=== PATIENT | female | born 1970 | race Caucasian/White ===

== ENCOUNTER 2020-06-06 12:59 | Emergency (ER) | payer OTHER, SELFPAY ==
--- NOTE | ~2020-06-06 | US_ITS ---
EXAMINATION: US pelvic complete w TV EXAM DATE: 06/06/2020 16:15 INDICATION: Vaginal bleeding, spotting after menstrual cycle Stopped. TECHNIQUE: Pelvic transabdominal and transvaginal sonogram was performed. There are multiple graysca le and Doppler images available for interpretation. Comparison is made to prior examination from 09/06. FINDINGS: Uterus measures 8.5 x 5.4 x 5.6 cm, is anteverted with cystic region at the cervix probabl y nabothian cyst, another region which may be a small fibroid measuring 1 cm. Endometrial stripe alireza ures 5 mm, within normal limits. There is no free pelvic fluid. Right adnexa: The ovary measures 2.4 x 1.0 x 2.5 cm and is morphologically normal. Ovarian vascular f low confirmed. Left adnexa: The ovary measures 1.6 x 0.7 x 1.8 cm and is morphologically normal. Ovarian vascular fl ow confirmed. IMPRESSION: 1. Unremarkable pelvic ultrasound exam. Reviewed, dictated and finalized at location A.
[2020-06-06 13:29] VITALS: BP 179/94; PULSE 98; RESP 20; TEMP 37.1; O2SAT 100
[2020-06-06 13:34] LABS: Basophils Absolute Auto 0.1 K/mm3 (0.0-0.1); Basophils Percent Auto 0.7 % (0.2-1.2); Eosinophils Absolute Auto 0.2 K/mm3 (0-0.3); Eosinophils Percent Auto 1.9 % (0-4.4); Hematocrit 39.8 % (37.0-47.0); Hemoglobin 13.3 g/dL (12.0-15.0); Immature Granulocyte Absolute 0.08 K/mm3 (0.00-0.031); Immature Granulocyte Percent A 0.9 % (0-0.5); Lymphocytes Absolute Auto 3.93 K/mm3 (0.9-3.2); Lymphocytes Percent Auto 41.8 % (18.3-44.2); Mean Corpuscular HGB Conc 33.4 g/dl (32-36); Mean Corpuscular Hemoglobin 30.2 pg (26-34); Mean Corpuscular Volume 90.5 fl (80-100); Mean Platelet Volume 10.3 fl (7.4-10.4); Monocytes Absolute Auto 0.9 K/mm3 (0.1-0.6); Neutrophils Absolute Auto 4.3 K/mm3 (1.3-6.7); Neutrophils Percent Auto 45.7 % (45.5-73.1); Platelet Count Result 265 k/mm3 (150-375); Red Cell Distribution Width 13.7 % (11.5-14.5); White Blood Count 9.4 K/mm3 (4.5-10.0)
[2020-06-06 13:48] LABS: Alanine Aminotransferase 50 U/L (4-35); Albumin Level 4.3 g/dL (3.5-5.1); Alkaline Phosphatase 66 U/L (38-126); Anion Gap 11.6 mmol/L (7-16); Aspartate Amino Transferase 45 U/L (14-36); Bilirubin,Total 0.4 mg/dL (0.2-1.3); Blood Urea Nitrogen 15 mg/dL (7-17); Calcium 9.1 mg/dL (8.4-10.2); Carbon Dioxide 23 mmol/L (22-30); Chloride 107 mmol/L (98-107); Estimated CRCL calculation 98 ml/min; Estimated Glomerular Filt Rate > 60; Glucose 109 mg/dL (65-105); Lipase 123 U/L (23-300); Potassium 3.6 mmol/L (3.4-5.0); Sodium 138 mmol/L (137-145)
[2020-06-06 13:51] LABS: Add Urine Microscopic? YES; Appearance Urine Clear (Clear); Bacteria Urine Trace /hpf; Bilirubin Urine Negative (Negative); Blood Urine 3+ (Negative); Color Urine Yellow (Yellow); Glucose Urine UA Negative (Negative); Ketones Urine Negative (Negative); Leukocyte Esterase Ur Negative LEU/UL (Negative); Mucus Urine Rare /lpf; Nitrate Urine Negative (Negative); Protein Urine 1+ mg/dL (Negative); RBC Urine >75 /hpf (0-2); Specific Grav Ur 1.029 (1.001-1.035); Squamous Epithelial Cell Urine Moderate /hpf (Few); Urobilinogen Urine Negative mg/dL (<2.0); WBC Urine 0-3 /hpf
--- NOTE | 2020-06-06 15:25 | ED.FEMALEGU ---
HPI - Female Genitourinary General Chief complaint: Vaginal Bleeding Stated complaint: abnormal period Time Seen by Provider: 06/06/20 14:20 Source: patient Mode of arrival: ambulatory Limitations: no limitations History of Present Illness HPI Narrative: This patient is a 49 year old female who presents for evaluation of abnormal vaginal bleeding. PAtient states she started her menstrual cycle early and she feels off. PAtient reports she had a cycle that started May 02 and it lasted 6 days. She then started another menstrual cycle May 23 and it lasted 8 days. She thought she was done with her cycle but she developed vaginal spotting today. She reports intermittent groin pain. She denies nausea, vomiting, fever or chills. She denies hematuria. She has history of endometriosis. Relieving factors: menstrual period Related Data Allergies Allergy/AdvReac Type Severity Reaction Status Date / Time levofloxacin Allergy Unknown MUSCLE Verified 04/20/19 00:05 WEAKNESS Sulfa (Sulfonamide Allergy Unknown VOMIT Verified 04/20/19 00:05 Antibiotics) AMOXICILLIN TRIHYDRATE Allergy Unknown RASH Uncoded 04/20/19 00:05 HYDROCODONE BIT Allergy Unknown RASH Uncoded 04/20/19 00:05 OXYCODONE HCL Allergy Unknown Uncoded 04/20/19 00:05 POTASSIUM CLAVULANATE Allergy Unknown RASH Uncoded 04/20/19 00:05 Review of Systems Review of Systems: All systems reviewed & are unremarkable except as noted in HPI and below Constitutional: Constitutional: Denies chills and Denies fatigue Genitourinary: Genitourinary: Reports abnormal vaginal bleeding PMFSH Past Medical History Medical History (Updated 06/06/20 @ 17:55 by Emma Lee MD) Endometriosis Migraine headache Surgical History Surgical History (Updated 06/06/20 @ 15:29 by Emma Lee MD) History of laparoscopy Social History Social History Smoking status: Never smoker Alcohol intake: never Exam Narrative: Exam Narrative: GENERAL: Well-appearing, well-nourished, and in no acute distress. HEAD: Normocephalic, atraumatic EYES: PERRLA and EOMI, conjunctiva clear without discharge THROAT:Mucous membranes moist, Oropharynx normal without erythema, exudate, peritonsillar swelling or fluctuance NECK: Supple, without lymphadenopathy or mass RESPIRATORY: No respiratory distress, Airway patent, Respirations non-labored, Clear to auscultation without rales, rhonchi or wheeze HEART: Regular rate and rhythm. No murmur heard. Normal peripheral pulses. ABDOMEN: Soft, nontender, nondistended, normal active bowel sounds. No masses. No rebound or guarding, No organomegaly. EXTREMITIES: No edema, normal strength with full range of motion. SKIN: Warm, dry, normal color without rash NEURO: Alert and oriented x3. CN 2-12 grossly intact. No focal deficits. PSYCH: Normal mood and affect. : Speculum Exam - Vagina: vaginal bleeding (small amount of dark vaginal bleeding, no clots) Speculum Exam - Cervix: Cervical os closed Bimanual Exam- Adnexa, other: no masses Course Reevaluation(s) Reevaluation #1: I Discussed with patient that labs are unremarkable. She has blood in her urine but she is having vaginal bleeding. I also discussed ultrasound. She will follow up with [facility] dental lab technician. Date: 06/06/20 Time: 17:53 Vital Signs Vital signs: Vital Signs Temperature 98.7 F 06/06/20 13:29 Pulse Rate 98 06/06/20 13:29 Respiratory Rate 20 06/06/20 13:29 Blood Pressure 179/94 H 06/06/20 13:29 Pulse Oximetry 100 06/06/20 13:29 Temperature 98.7 F 06/06/20 13:29 Pulse Rate 73 06/06/20 17:18 Respiratory Rate 18 06/06/20 17:18 Blood Pressure 147/95 H 06/06/20 17:18 Pulse Oximetry 99 06/06/20 17:18 MDM - Female Genitourinary Lab Data Attestation: I reviewed the patient's lab results. Result diagrams: 06/06/20 13:29 06/06/20 13:29 Labs: Lab Results 06/06/20 06/06/20 06/06/20 Range/Units 13:29
[2020-06-06 17:18] VITALS: BP 147/95; PULSE 73; RESP 18; O2SAT 99
== END 2020-06-06 18:18 | disposition home or self-care (01) ==
PROVIDERS: Emergency Provider General Practice
DX: N92.1 Excessive and frequent menstruation with irregular cycle (principal); N80.9 Endometriosis, unspecified
CPT/HCPCS: 36415; 76830; 76856; 80053; 81001; 81025; 83690; 85025; 99284

== ENCOUNTER 2020-09-04 15:28 | Outpatient (CLI) | payer OTHER, SELFPAY ==
--- NOTE | ~2020-09-04 | MM_ITS ---
EXAMINATION: MM screening [facility]hel HISTORY: Screening TECHNIQUE: Craniocaudal and mediolateral oblique 3-D tomosynthesis images were obtained and synthetic 2-D images were generated. CAD analysis was submitted and interpreted. COMPARISON: Comparison to multiple prior studies sequentially, with oldest reviewed study dated 09/03. BREAST PARENCHYMAL COMPOSITION: The breasts are heterogeneously dense, which may obscure small masses . FINDINGS: There are clusters of calcifications in the upper outer quadrant of the right breast, nonsp ecific. The left breast is stable without evidence for malignancy. IMPRESSION: 1. New cluster of indeterminate right breast calcifications, upper outer quadrant. 2. Magnification views are recommended. BI-RADS Category 0: Incomplete: Needs additional imaging evaluation. Reviewed, dictated and finalized at location A. R [employer] IMPRESSION: 1. New cluster of indeterminate right breast calcifications, upper outer quadra nt. 2. Magnification views are recommended. BI-RADS Category 0: Incomplete: Needs additional imaging evaluation.
== END 2020-09-04 15:29 | disposition home or self-care (01) ==
LOC: ANHIMG 15:34
PROVIDERS: PCP Nurse Practitioner Family; Visit Provider Nurse Practitioner Family
DX: Z12.31 Encounter for screening mammogram for malignant neoplasm of breast (principal); R92.8 Other abnormal and inconclusive findings on diagnostic imaging of breast
CPT/HCPCS: 77063; 77067

== ENCOUNTER 2020-10-06 12:15 | Outpatient (CLI) | payer OTHER, SELFPAY ==
--- NOTE | ~2020-10-06 | MMUS_ITS ---
EXAMINATION: MM diagnostic mammo unilat RT, US breast RT limited HISTORY: New cluster of indeterminate right breast calcifications reported in upper outer quadrant on 09/04/2020 bilateral digital screening mammogram examination TECHNIQUE: Additional 3-D ML tomosynthesis images of right breast were performed and synthetic 2-D im ages were generated. Magnification views of right breast in ML, MLO and CC projections. CAD analysis was submitted and interpreted. High resolution upper outer quadrant right breast ultrasound was perfo rmed. COMPARISON: 09/04/2020 bilateral digital screening mammogram FINDINGS: MAMMOGRAPHIC FINDINGS: There are several areas of grouped microcalcifications in the posterior upper outer right breast; one of these clusters has multiple granular indeterminate microcalcifications, for which stereotactic bi opsy is recommended. ULTRASOUND: Upper outer quadrant right breast ultrasound examination revealed 2 small cysts, one at 10:00 16 cm f rom the nipple measuring up to 3.3 mm, the other at 10:00 13 cm from the nipple, measuring up to 2.7 x 5.7 mm. There is dense tissue but no suspicious solid lesion or suspicious reproducible shadowing is noted ot herwise. IMPRESSION: 1. Indeterminate cluster of numerous granular microcalcifications in the upper outer right breast 2. Stereotactic biopsy is recommended. BI-RADS category 4, suspicious findings. Dr. Braun left a telephone voicemail message with the report and recommendation for stereotactic biops y of the upper outer quadrant of the right breast recommendation at [phone] on 10/06/2020 at 1345 hours. Reviewed, dictated and finalized at location A. RAL SERVICE TECHNICIAN IMPRESSION: 1. Indeterminate cluster of numerous granular microcalcifications in the upper outer right breast 2. Stereotactic biopsy is recommended. BI-RADS category 4, suspicious findings. Dr. Braun left a telephone voicemail message with the report and recommendation for stereotactic biopsy of the upper outer quadrant of the right breast recomme ndation at [phone] on 10/06/2020 at 1345 hours. IMPRESSION: 1. Indeterminate cluster of numerous granular microcalcifications in the upper outer right breast 2. Stereotactic biopsy is recommended. BI-RADS category 4, suspicious findings. Dr. Braun left a telephone voicemail message with the report and recommendation for stereotactic biopsy of the upper outer quadrant of the right breast recomme ndation at [phone] on 10/06/2020 at 1345 hours.
== END 2020-10-06 12:16 | disposition home or self-care (01) ==
PROVIDERS: PCP Nurse Practitioner Family; Visit Provider Nurse Practitioner Family
DX: R92.1 Mammographic calcification found on diagnostic imaging of breast (principal); N60.01 Solitary cyst of right breast
CPT/HCPCS: 76642; 77065

== ENCOUNTER 2020-10-20 10:29 | Outpatient (CLI) | payer OTHER, SELFPAY ==
--- NOTE | ~2020-10-20 | MM_ITS ---
MM post biopsy diagnostic RT, MM stereotactic specimen RT, MM stereotactic bx RT EXAMINATION: MM post biopsy diagnostic RT, MM stereotactic specimen RT, MM stereotactic bx RT DATE: Naldo Buenrostro M.D. INDICATION: Abnormal mammogram with calcifications in the right breast. Stereotactic core biopsy is requested evaluate for malignancy.] TECHNIQUE AND FINDINGS: The risks and potential benefits of the procedure were discussed with the patient and written informe d consent was obtained. The patient was placed in the prone position clustered at the table with the right breast in mediolateral compression, and the area of interest was localized and targeted utiliz ing digital imaging with stereotaxis. After sterile preparation of the skin, 1% lidocaine was utilized for local anesthesia at the skin pun cture site and 1% lidocaine with epinephrine was utilized for deeper local anesthesia/is about the bi opsy site. A 9G Merlin vacuum assisted biopsy needle was advanced to the level of the calcification o f interest from a lateral approach utilizing stereotactic guidance and a total of 6 tissue core biops ies were obtained. A specimen radiograph demonstrates that the calcifications of interest are included within the tissue cores. A tissue marker clip was then placed at the biopsy site. The needle was removed and hemosta sis was achieved. The patient tolerated the procedure well and there is no evidence of significant i mmediate complication. The patient was given verbal as well as written postprocedural instructions p rior to discharge from the department. Tissue cores were submitted to surgical pathology for histolo gic analysis. A 2-view right unilateral digital mammogram was obtained post procedure and this demonstrates that th e tissue marker clip is in expected position.] IMPRESSION: 1. Successful stereotactic biopsy of calcifications in the upper outer quadrant of the right breast, followed by tissue marker clip placement. Please refer to pathology report for histologic analysis. Reviewed, dictated and finalized at location A. RACKER IMPRESSION: 1. Successful stereotactic biopsy of calcifications in the upper outer quadran t of the right breast, followed by tissue marker clip placement. Please refer to pathology report for histologic analysis. IMPRESSION: 1. Successful stereotactic biopsy of calcifications in the upper outer quadran t of the right breast, followed by tissue marker clip placement. Please refer to pathology report for histologic analysis.
== END 2020-10-20 10:30 | disposition home or self-care (01) ==
PROVIDERS: PCP Physician Assistant; Visit Provider Nurse Practitioner Family
DX: R92.8 Other abnormal and inconclusive findings on diagnostic imaging of breast (principal); R92.1 Mammographic calcification found on diagnostic imaging of breast; N60.32 Fibrosclerosis of left breast; N60.31 Fibrosclerosis of right breast
CPT/HCPCS: 19081; 77065; 88305; A4648

== ENCOUNTER 2022-01-10 15:07 | Outpatient (CLI) | payer OTHER, SELFPAY ==
--- NOTE | ~2022-01-10 | MM_ITS ---
EXAMINATION: MM screening [facility] w [facility]hel HISTORY: Screening TECHNIQUE: Craniocaudal and mediolateral oblique 3-D tomosynthesis images were obtained and synthetic 2-D images were generated. CAD analysis was submitted and interpreted. COMPARISON: Comparison to multiple prior studies sequentially, with oldest reviewed study dated 02/2018. BREAST PARENCHYMAL COMPOSITION: There are scattered areas of fibroglandular density. FINDINGS: There is no evidence of suspicious mass, calcification, or architectural distortion to sugg est malignancy in either breast. There has been no suspicious interval change. IMPRESSION: 1. No mammographic evidence of malignancy. 2. Recommend routine screening mammography in one year. BI-RADS Category 1: Negative Reviewed, dictated and finalized at location A. E MAN
== END 2022-01-10 15:08 | disposition home or self-care (01) ==
LOC: ANHIMG 15:09
PROVIDERS: PCP Physician Assistant; Visit Provider Obstetrics & Gynecology
DX: Z12.31 Encounter for screening mammogram for malignant neoplasm of breast (principal)
CPT/HCPCS: 77063; 77067

== ENCOUNTER 2022-03-25 08:11 | Outpatient (CLI) | payer OTHER, SELFPAY ==
--- NOTE | ~2022-03-25 | US_ITS ---
EXAMINATION: US soft tissue head and neck DATE: 03/25/2022 11:04 INDICATION: Left neck lump. TECHNIQUE: Multiple grayscale and Doppler ultrasound images of the neck were obtained. COMPARISON: CT cervical spine 09/18/2018 FINDINGS: There is a normal superficial lymph node in the patient's area of concern in left neck. IMPRESSION: 1. Normal superficial lymph node in the patient's area of concern in left neck. Reviewed, dictated and finalized at location A.
--- NOTE | ~2022-03-25 | US_ITS ---
EXAMINATION: US soft tissue upper back DATE: 03/25/2022 11:03 INDICATION: Right back mass. TECHNIQUE: Multiple grayscale and Doppler ultrasound images of the right posterior thorax were obtain ed. COMPARISON: Cervical spine CT 09/18/2018, CT abdomen and pelvis 09/06/2012 FINDINGS: In the right upper posterior thorax, there is a 1.4 x 0.7 x 1.5 cm hypoechoic subcutaneous mass. IMPRESSION: 1. 1.4 cm hypoechoic subcutaneous mass in right superior posterior thorax, which may be benign or or less likely malignant. Ultrasound-guided core needle biopsy is recommended. Reviewed, dictated and finalized at location A. IMPRESSION: 1. 1.4 cm hypoechoic subcutaneous mass in right superior posterior thorax, whic h may be benign or or less likely malignant. Ultrasound-guided core needle biop sy is recommended.
== END 2022-03-25 08:12 | disposition home or self-care (01) ==
PROVIDERS: PCP Physician Assistant; Visit Provider Physician Assistant
DX: R22.2 Localized swelling, mass and lump, trunk (principal)
CPT/HCPCS: 76536; 76604

== ENCOUNTER 2022-06-11 15:49 | Outpatient (CLI) | payer OTHER, SELFPAY ==
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
== END 2022-06-11 15:50 | disposition home or self-care (01) ==
LOC: ANHIMG 15:54
PROVIDERS: PCP Physician Assistant; Visit Provider Physician Assistant
DX: S39.92XA Unspecified injury of lower back, initial encounter (principal); S99.912A Unspecified injury of left ankle, initial encounter; S99.911A Unspecified injury of right ankle, initial encounter; M77.32 Calcaneal spur, left foot; M77.31 Calcaneal spur, right foot; M51.36 Other intervertebral disc degeneration, lumbar region
CPT/HCPCS: 72100; 73521; 73600

== ENCOUNTER 2023-08-21 16:03 | Outpatient (CLI) | payer OTHER, SELFPAY ==
--- NOTE | ~2023-08-21 | MM_ITS ---
EXAMINATION: MM screening [facility] w rhael HISTORY: Screening TECHNIQUE: Craniocaudal and mediolateral oblique 3-D tomosynthesis images were obtained and synthetic 2-D images were generated. CAD analysis was submitted and interpreted. COMPARISON: Comparison to multiple prior studies sequentially, with oldest reviewed study dated 12/2019. BREAST PARENCHYMAL COMPOSITION: Breast composed of scattered areas of fibroglandular density FINDINGS: There is a developing cluster of punctate monomorphic calcifications near prior biopsy site in the upper outer quadrant of the right breast. The left breast is stable without evidence for janessa gnancy. IMPRESSION: 1. Developing cluster of punctate calcifications upper outer quadrant of the right breast posteriorly . 2. Magnification views are recommended. BI-RADS Category 0: Incomplete: Needs additional imaging evaluation. Reviewed, dictated and finalized at location A. IMPRESSION: 1. Developing cluster of punctate calcifications upper outer quadrant of the ri ght breast posteriorly. 2. Magnification views are recommended. BI-RADS Category 0: Incomplete: Needs additional imaging evaluation.
== END 2023-08-21 16:04 | disposition home or self-care (01) ==
PROVIDERS: PCP Physician Assistant; Visit Provider Obstetrics & Gynecology
DX: Z12.31 Encounter for screening mammogram for malignant neoplasm of breast (principal); R92.8 Other abnormal and inconclusive findings on diagnostic imaging of breast
CPT/HCPCS: 77063; 77067

== ENCOUNTER 2023-09-01 10:46 | Outpatient (CLI) | payer OTHER, SELFPAY ==
--- NOTE | ~2023-09-01 | MR_ITS ---
EXAMINATION: MR cervical spine wo con DATE: 09/01/2023 11:24 INDICATION: Degeneration of cervical intervertebral disc. TECHNIQUE: Magnetic resonance imaging (MRI) of the cervical spine was performed without intravenous c ontrast. Sequences included sagittal T2-weighted FSE, sagittal T2-weighted FS FSE, sagittal T1-weight ed FSE, axial MERGE, and axial T2-weighted FSE. COMPARISON: None FINDINGS: There is 3 degrees dextrocurvature of cervicothoracic spine. There is kyphosis of cervical spine. Vertebral body heights are normal. There is severely decreased disc height at C4-C5, moderatel y decreased disc height at C5-C6, and severely decreased disc height at C6-C7. The following disc lev els are specifically discussed: C2-C3: The disc does not extend beyond the endplate margin. There is no uncovertebral joint osteoarth ritis. There is mild bilateral facet joint osteoarthritis. There is no neural foraminal stenosis. The re is no central canal stenosis. C3-C4: There is a central extrusion. There is mild bilateral uncovertebral joint osteoarthritis. Ther e is moderate right facet joint osteoarthritis. There is no neural foraminal stenosis. There is mild central canal stenosis with ventral indentation of the spinal cord. C4-C5: The disc is bulging. There is moderate right and severe left uncovertebral joint osteoarthriti s. There is no facet joint osteoarthritis. There is mild left neural foraminal stenosis. There is mil d central canal stenosis. C5-C6: The disc is bulging. There is moderate bilateral uncovertebral joint osteoarthritis. There is mild left facet joint osteoarthritis. There is mild bilateral neural foraminal stenosis. There is mil d central canal stenosis. C6-C7: The disc is bulging. There is moderate right and severe left uncovertebral joint osteoarthriti s. There is no facet joint osteoarthritis. There is moderate left neural foraminal stenosis. There is mild central canal stenosis. C7-T1: There is a central protrusion. There is no uncovertebral joint osteoarthritis. There is modera te right and severe left facet joint osteoarthritis. There is mild left neural foraminal stenosis. Th ere is no central canal stenosis. IMPRESSION: 1. Severe cervical spondylosis. Reviewed, dictated and finalized at location E.
== END 2023-09-01 10:47 | disposition home or self-care (01) ==
LOC: ANHIMG 10:47
PROVIDERS: PCP Physician Assistant; Visit Provider Physician Assistant
DX: M50.30 Other cervical disc degeneration, unspecified cervical region (principal); M47.892 Other spondylosis, cervical region
CPT/HCPCS: 72141

== ENCOUNTER 2024-02-19 03:12 | Emergency (ER) | payer OTHER, SELFPAY ==
[2024-02-19] VITALS (7 sets, daily range): BP systolic 136–164; BP diastolic 49–115; PULSE 75–94; RESP 18–30; TEMP 36.7; O2SAT 99–100
--- NOTE | ~2024-02-19 | CT_ITS ---
Clinical Indication: Dyspnea, lung nodule CT Scan of the Chest with Contrast: Technique: Contiguous sections were acquired throughout the chest after intravenous administration of 100 cc of Omnipaque 350. Dose reduction technique was used on this scan by utilizing automated expos ure control and iterative reconstruction technique. The dose-length product (DLP) was 855.19 mGy-cm. Findings: There is no evidence of any significant mediastinal, hilar or axillary lymphadenopathy. There is no f illing defect in the pulmonary arterial tree to suggest pulmonary embolus. There is no evidence of ao rtic dissection or aneurysm. There is no evidence of pleural or pericardial effusion. The lungs are clear. No pulmonary nodules or infiltrates are noted. Images through the upper abdomen reveal no abnormalities. Impression: No evidence of pulmonary embolus, aortic dissection, or aortic aneurysm. Clear lungs. Reviewed, dictated and finalized at [facility]. Impression: No evidence of pulmonary embolus, aortic dissection, or aortic aneurysm. Clear lungs.
--- NOTE | ~2024-02-19 | XR_ITS ---
Portable chest x-ray Comparison: None Clinical History: Cough Findings: Questionable 14 mm right basilar pulmonary nodule. Left lung clear. Cardiomediastinal wojciech houette is unremarkable. Bones and soft tissues are unremarkable. Impression: Possible 14 mm right basilar pulmonary nodule. Chest CT recommended to confirm or exclude. Reviewed, dictated and finalized at [facility]. Impression: Possible 14 mm right basilar pulmonary nodule. Chest CT recommended to confirm or exclude.
--- NOTE | 2024-02-19 03:29 | ECG_ITS ---
SEE SCANNED COPY FOR CONFIRMED REPORT MTDD
--- NOTE | 2024-02-19 03:38 | ED.SOB ---
HPI - SOB/Dyspnea General Chief Complaint: Shortness of Breath/Dyspnea Stated Complaint: shortness of breath/sick 12 days/pneumonia? Time Seen by Provider: 02/19/24 03:26 History of Present Illness HPI Narrative: Patient states that she has been having some central chest tightness and shortness of breath, which feels like when she had past, she is worried about pneumonia. She had recently been diagnosed with an ear infection and started on clindamycin. Related Data Allergies Allergy/AdvReac Type Severity Reaction Status Date / Time levofloxacin Allergy Unknown MUSCLE Verified 02/19/24 03:29 WEAKNESS Sulfa (Sulfonamide Allergy Unknown VOMIT Verified 02/19/24 03:29 Antibiotics) AMOXICILLIN TRIHYDRATE Allergy Unknown RASH Uncoded 02/19/24 03:29 HYDROCODONE BIT Allergy Unknown RASH Uncoded 02/19/24 03:29 OXYCODONE HCL Allergy Unknown Unknown Uncoded 02/19/24 03:29 POTASSIUM CLAVULANATE Allergy Unknown RASH Uncoded 02/19/24 03:29 Review of Systems Review of Systems: All systems reviewed & are unremarkable except as noted in HPI and below PMFSH Past Medical History Medical History (Updated 02/19/24 @ 06:38 by Helen Schmid MD) Endometriosis Migraine headache Surgical History Surgical History (Updated 06/06/20 @ 15:29 by Emma Lee MD) History of laparoscopy Social History Social History Smoking status: Never smoker Alcohol intake: never Exam Narrative: EXAMINATION OF ORGAN SYSTEMS/BODY AREAS: Constitutional: Vital signs per nursing GENERAL:[No acute distress, non-toxic appearing.] HEAD: Normal with no signs of head trauma. EYES: EOMI, conjunctiva normal ENT: Hearing grossly intact LUNGS: Nonlabored breathing. Speaking in full sentences. Clear to auscultation bilaterally. HEART: [Regular rate and rhythm] ABD: [Soft], [nontender to palpation] EXT: Normal range of motion. No lower extremity edema. No tenderness. Neg faizan's sign. SKIN: [No rashes or lesions.] NEURO: [Alert and oriented x 3. No gross focal sensory or strength deficits.] PSYCH: Anxious affect Course Vital Signs Vital signs: Vital Signs Temperature 98.0 F 02/19/24 03:18 Pulse Rate 91 02/19/24 03:18 Respiratory Rate 23 H 02/19/24 03:18 Blood Pressure 160/49 H 02/19/24 03:18 Pulse Oximetry 100 02/19/24 03:18 Oxygen Delivery Room Air 02/19/24 03:18 Temperature 98.0 F 02/19/24 03:27 Pulse Rate 88 02/19/24 05:31 Respiratory Rate 25 H 02/19/24 05:31 Blood Pressure 136/81 02/19/24 05:31 Pulse Oximetry 100 02/19/24 05:31 Oxygen Delivery Room Air 02/19/24 03:27 MDM - SOB/Dyspnea MDM Narrative Medical decision making narrative: Patient with history of anxiety presenting with some shortness of breath and recent ear infection, has been going on for about 2 weeks now, is worried about having pneumonia. She is well appearing in no respiratory distress, though she does 6 seemed quite anxious. She has no DVT signs or symptoms, so I have low concern for PE especially since she has normal heart rate and normal oxygenation, without risk factors. Also consider ACS, EKG here shows normal sinus rhythm at a rate of 80, WI interval 207, QTC 412, normal axis, no ST elevations depressions, on my own independent interpretation, no signs of acute ischemia or arrhythmia. Chest x-ray on my own independent interpretation showing no obvious focal consolidation, there is some perihilar bilateral infiltrates which does seem consistent with likely viral pneumonia. I did update the patient on the normal findings, however she is quite anxious and would like to have additional workup, she is rather taken in care so I will obtain blood work, and a D-dimer. Labs within acceptable limits her D-dimer is just minimally elevated when age adjusted, since x-ray radiologist did mention patient had a nodule that needed further evaluation with CT, I will obtain a CT chest. This is negative for nodule, PE, pneumo
[2024-02-19 04:24] LABS: Influenza A QL RT-PCR Negative (Negative); Influenza B QL RT-PCR Negative (Negative); RSV RNA, RT-PCR Negative (Negative); SARS-CoV-2 RNA PCR Negative (Negative)
--- NOTE | 2024-02-19 05:12 | PC.NURSE ---
Report received from DIONY Bloom.
[2024-02-19 05:16] LABS: Basophils Absolute Auto 0.1 K/mm3 (0.0-0.1); Basophils Percent Auto 0.8 % (0.2-1.2); Eosinophils Absolute Auto 0.1 K/mm3 (0-0.3); Eosinophils Percent Auto 0.7 % (0-4.4); Hematocrit 45.6 % (37.0-47.0); Hemoglobin 15.3 g/dL (12.0-15.0); Immature Granulocyte Absolute 0.07 K/mm3 (0.00-0.031); Immature Granulocyte Percent A 0.7 % (0-0.5); Lymphocytes Percent Auto 36.5 % (18.3-44.2); Mean Corpuscular HGB Conc 33.6 g/dl (32-36); Mean Corpuscular Hemoglobin 31.6 pg (26-34); Mean Corpuscular Volume 94.2 fl (80-100); Mean Platelet Volume 10.4 fl (7.4-10.4); Monocytes Absolute Auto 0.7 K/mm3 (0.1-0.6); Monocytes Percent Auto 6.9 % (2.6-8.5); Neutrophils Absolute Auto 5.5 K/mm3 (1.3-6.7); Neutrophils Percent Auto 54.4 % (45.5-73.1); Platelet Count Result 248 k/mm3 (150-375); Red Blood Count 4.84 M/mm3 (4.2-5.4); Red Cell Distribution Width 12.5 % (11.5-14.5); White Blood Count 10.1 K/mm3 (4.5-10.0)
[2024-02-19 05:30] LABS: Anion Gap 10 mmol/L (4-12); Blood Urea Nitrogen 14 mg/dL (7-17); Calcium 10.1 mg/dL (8.4-10.2); Carbon Dioxide 25 mmol/L (22-30); Chloride 105 mmol/L (98-107); Estimated CRCL calculation 94 ml/min; Estimated Glomerular Filt Rate > 60; Glucose 98 mg/dL (65-110); Potassium 4.1 mmol/L (3.4-5.0); Sodium 140 mmol/L (137-145)
[2024-02-19 05:41] LABS: Troponin I < 0.012 ng/mL (0.000-0.034)
[2024-02-19 05:51] LABS: D Dimer 0.51 ug/mL (<0.48)
== END 2024-02-19 07:03 | disposition home or self-care (01) ==
PROVIDERS: Emergency Provider Emergency Medicine; PCP Physician Assistant Medical
DX: R06.02 Shortness of breath (principal); Z20.822 Contact with and (suspected) exposure to COVID-19; N80.9 Endometriosis, unspecified
CPT/HCPCS: 36415; 71045; 71275; 80048; 84484; 85025; 85380; 87637; 93005; 99284; Q9967